=== PATIENT | female | born 2000 | race Two or more races ===

== ENCOUNTER 2024-09-24 14:02 | Outpatient (AMB) | payer MEDICAID, SELFPAY ==
[2024-09-24 14:10] VITALS: BP 114/66; PULSE 93; RESP 20; TEMP 36.8; O2SAT 97; BMI 32.4
--- NOTE | 2024-09-24 14:10 | AMB.OBINITIA ---
Vital Signs 09/24/24 14:10 Height 1.7 m Height Method Stated Weight 93.894 kg Weight Measurement Method Standing Scale BMI 32.4 BP 114/66 Blood Pressure Source Automatic Cuff Blood Pressure Location Right Upper Arm Position Sitting Respiration 20 Pulse 93 Pulse Source Monitor Temp 98.2 F Temp Source Temporal Artery Scan Pulse Oximetry (%) 97 Oxygen Delivery Method Room Air Allergies/Home Meds Allergies & Medications Allergies No Known Allergies Allergy (Verified 09/24/24 14:11) Medication Reconciliation vits no.126-ferrous fum 28 mg iron-folic acid 800 mcg tablet (Classic ) tab PO 09/24/24 [History Confirmed 09/24/24] Intake Visit Data Collection New Patient or Established: New Patient (never been to [facility]) Reason for Visit:: obi Berry Picker Required: Yes Do You Feel Safe at Home: Yes Authorities Contacted: N/A PCP or OBGYN visit in last 3 months: Yes Last menstrual period: 02/22/24 Pain Present Currently: No Smoking Status Smoking Status: Never smoker Questionnaires Covid-19 Vaccine Questionnaire Has patient been vacinated for Covid-19 Have you been vacinated for Covid-19: Yes PHQ-9 PHQ-2 Over the last 2 weeks, how often have you been bothered by any of the following problems? 1. Little interest or pleasure in doing things: not at all 2. Feeling down, depressed, or hopeless: not at all Total score: 0 Depression screen completed yes Social History Living Situation History Marital Status: Lives With: Spouse Housing: Apartment Tobacco History Smoking Status: Never smoker Alcohol History Alcohol Intake: Never Domestic Abuse History Do You Feel Safe at Home: Yes Past Medical History Past Medical History Have you ever been diagnosed with any of the following: History of Present Illness HPI Narrative 24-year-old 2 para 1 for first visit to the [facility] OB [facility]. Patient is a transfer of care from [facility] with records. Last period January 18, 2024. This gave a due date of October 24, 2024. Patient had uncertain dates. Her first ultrasound was July 02, 2024. Patient was 19 weeks 1 day and this change due date to November 25, 2024. Patient then had another ultrasound August 13, 2024. Patient was 25 weeks 1 and this confirmed dates. Showed normal anatomy. Patient is O+, antibody screen negative, RPR nonreactive, rubella immune, hepatitis B negative, hep C negative, HIV negative, her GC and Chlamydia were negative. Negative urinalysis. A1c was 5.1. Her 1 hour was 142. But 3-hour Glucola was normal. Patient denies social habits. Denies history of chronic illnesses. She reports good movement. Denies contractions. Tdap was last given at her visit. NIPT AFP and carrier screens were all negative OB Initial Visit OB Flowsheet OB Flowsheet Initial Weight: Not Recorded Date <del>?</del> EGA Weight Edema CTX Effacement BP Fundal ht Pres Dilation Effacement Station Visit Note Alb Glu FHR Mov 09/24/24 <del>?</del> 31w 1d 93.894 kg absent absent 114/66 31 unknown 24-year-old 2 para 1, previous x 1 for 4 first OB check to [facility] clinic. Patient is a transfer of care from [facility] with her records. She reports good movement. Denies any complaints of labor. No leaking. She had Tdap at her last visit. She had a abnormal 1 hour that was 142. 3-hour Glucola was normal. Her A1c was 5.1. Patient is been taking her vitamins and iron. Reports good movement. Patient has follow-up maternal- ultrasound October 29. Menstrual History Menstrual reliability: definite Flow: normal Menstrual regularity: regular Monthly: Yes Age at menarche: 14 On control pills at conception: Yes Date of positive home test: 03/23/24 OB History : 2 Para: 1 # of Living Children: 1 Delivery History 1st : sex: female Delivery type: Delivery complications: none History of depression before or after : No Infection History & Risk Evaluation History of STDs: none HIV risk evaluation: low risk Hepatitis B risk evaluation: low risk Patient or partner has history of Genital Herpes: No Varicella/chicken pox status: immunized Genetic Screening & History Genetic Screening/Teratology Counseling - Includes patient, baby's father, or anyone in either family with: 1. Patient's age 35 years or older as of estimated date of delivery: No 2. Thalassemia (Luxembourgish, Mohawk, Mediterranean, or Background); MCV less than 80: No 3. Neural Tube Defect (Meningomyelocele, Spina Bifida, or Anencephaly): No 4. Congenital Heart Defect: No 5. Down Syndrome: No 6. Raulito-Sachs (Ashkenazi Restorationism, Cajun, Greek [place]): No 7. Mary Disease (Ashkenazi Restorationism): No 8. Familial Dysautonomia (Ashkenazi Restorationism): No 9. Sickle Cell Disease or Trait (): No 10. Hemophilia or other blood disorders: No 11. Muscular Dystrophy: No 12. Cystic Fibrosis: No 13. Loveland's Chorea: No 14. Mental Retardation/Autism: No 15. Other inherited genetic or chromosomal disorder: No 16. Maternal Metabolic Disorder (EG,TYPE 1 Diabetes, PKU): No 17. Patient or baby's father had a child with defects not listed above: No 18. Recurrent loss or a stillbirth: No 19. Medications (including supplements, vitamins, herbs or otc drugs)/illicit/recreational drugs/alcohol since last menstrual period: No 20. Any other: No Infection History 1. Live with someone with TB or exposed to TB: No 2. Rash or viral illness since last menstrual period: No 3. Hepatitis B,C: No Other (see comments) Source: [employer] [place] [employer] Review of Systems Review of Systems Systems Reviewed: All systems reviewed, normal except as documented Exam General Limitations: no limitations General Appearance: alert, in no apparent distress, comfortable, cooperative, healthy appearing, well developed and well groomed Neck Neck exam: Present normal inspection, full ROM and trachea midline Chest Chest inspection: Present normal inspection and symmetric chest wall rise Resp Respiratory exam: Present normal lung sounds bilaterally Card Cardiovascular exam: Present regular rate, normal rhythm and normal heart sounds Abdominal Abdominal exam: Present soft and normal bowel sounds Psych Psychiatric exam: Present normal affect and normal mood Assessment & Plan Diagnosis / Problem List (1) Encounter for supervision of high risk in third trimester, antepartum: Status: Acute (2) Previous section: Status: Acute Plan Referred to OB for medical management due to previous . Discussed labor precautions. Discussed kick count. Continue vitamins and iron.. Keep maternal- medicine appointment October 29. Return in 2 weeks OB check Additional Plan Follow Up: 2 Weeks (obc) Office Procedures OB Clinic LOC & Office Proc's Nursing/Assessment Patient Status: Initial/New Patient OB Clinic Nursing Assessment: Medication Reconciliation, Update PMH in EMR and Vital Signs OB Clinic Coordination of Care: Complex Care and Chronic Disease 1-5, Education Complex Pt/Fam and Staff clarify orders Special Needs: Language special needs New Patient Charge New Patient Point Assignment: [id number] New Patient Point Charge: BRICK PAVER Level 3 ([id number])
== END 2024-09-24 14:29 | disposition home or self-care (01) ==
LOC: HODSOBC 14:02
PROVIDERS: Supervising Provider Advanced Practice Midwife; Visit Provider Advanced Practice Midwife
DX: O09.293 Supervision of pregnancy with other poor reproductive or obstetric history, third trimester (principal); O34.219 Maternal care for unspecified type scar from previous cesarean delivery; Z3A.31 31 weeks gestation of pregnancy
CPT/HCPCS: 99203; G0463

== ENCOUNTER 2024-10-13 09:21 | Outpatient (AMB) | payer MEDICAID, SELFPAY ==
[2024-10-13 09:47] VITALS: BP 119/69; PULSE 92; RESP 18; TEMP 36.4; O2SAT 98; BMI 32.5
--- NOTE | 2024-10-13 09:47 | OBCLNT_ITS ---
Vital Signs 10/13/24 09:47 Height 1.7 m Height Method Stated Weight 94.12 kg Weight Measurement Method Standing Scale BMI 32.5 BP 119/69 Blood Pressure Source Automatic Cuff Blood Pressure Location Left Upper Arm Position Sitting Respiration 18 Pulse 92 Pulse Source Monitor Temp 97.6 F Temp Source Oral Pulse Oximetry (%) 98 Oxygen Delivery Method Room Air Allergies/Home Meds Allergies & Medications Allergies No Known Allergies Allergy (Verified 10/13/24 09:48) Medication Reconciliation vits no.126-ferrous fum 28 mg iron-folic acid 800 mcg tablet (Classic ) tab PO 09/24/24 [History Confirmed 10/13/24] Intake Visit Data Collection New Patient or Established: Established Patient (seen at [facility] within 3 years) Reason for Visit:: CARE Seen by Clinical Staff ONLY (RN/MA): No Insulation Supervisor Required: Yes Insulation Supervisor's name/title: NAUN GONZALEZ Do You Feel Safe at Home: Yes Authorities Contacted: N/A PCP or OBGYN visit in last 3 months: Yes Hx Now: Yes Are you currently on any form of Control: No Pain Present Currently: No Pain Scale Used: Lind-Dickens/Numerical Pain scale:: 0 Smoking Status Smoking Status: Never smoker Questionnaires Covid-19 Vaccine Questionnaire Has patient been vacinated for Covid-19 Have you been vacinated for Covid-19: Yes PHQ-9 PHQ-2 Over the last 2 weeks, how often have you been bothered by any of the following problems? 1. Little interest or pleasure in doing things: not at all 2. Feeling down, depressed, or hopeless: not at all Total score: 0 PHQ-9 3. Trouble falling or staying asleep, or sleeping too much: Not at all 4. Feeling tired or having little energy: Not at all 5. Poor appetite or overeating: Not at all 6. Feeling bad about yourself - or that you are a failure or have let yourself or your family down: Not at all 7. Trouble concentrating on things, such as reading the newspaper or watching television: Not at all 8. Moving or speaking so slowly that other people could have noticed? - Or the opposite - being so fidgety or restless that you have been moving around a lot more than usual: not at all 9. Thoughts that you would be better off or of hurting yourself in some way: Not at all Total score: 0 Source: Developed by Drs. Nilson Lin, Jeanette David, Albert Haynes and colleagues, with an educational camilla from [employer]. Depression screen completed yes Social History Living Situation History Lives With: Spouse Housing: Apartment Tobacco History Smoking Status: Never smoker Alcohol History Alcohol Intake: Never Domestic Abuse History Do You Feel Safe at Home: Yes History of Present Illness HPI Narrative - Ban Jorge is a 24-year-old ( 2, para 1) with a history of one previous section, presenting for her first visit. - Estimated due date: 11/25/2024, based on 2nd trimester ultrasound - Patient reports: - Baby is active - No contractions - Experienced some pressure, likely from spine, which resolved - Transferred care from [facility] - Recent healthcare interactions: - Abnormal 1-hour glucose test, followed by a normal 3-hour test - A1c of 5.1 - Upcoming appointments: - Maternal- ultrasound on 10/21/2024 - Specialist ultrasound on 10/29/2024 No contractions/ LOF/VB, reports good FM No NAVAS/VC/RUQ/Epig pain Care OB Visit Log OB Flowsheet Initial Weight: Not Recorded Date -?-?-?-?-?-?-?-?-?-?-?-?- EGA Weight BP Alb Glu CTX Pres Fundal ht FHR Mov Dilation Station Effacement Hx Notes Visit Note 09/24/24 -?-?-?-?-?--?-?-?-?-?-?-?- 31w 1d 93.894 kg 114/66 absent unknown 31 24-year-old 2 para 1, previous x 1 for 4 first OB check to [facility] OB clinic. Patient is a transfer of care from [facility] with her records. She reports good movement. Denies any complaints of labor. No leaking. She had Tdap at her last visit. She had a abnormal 1 hour that was 142. 3-hour Glucola was normal. Her A1c was 5.1. Patient is been taking her vitamins and iron. Reports good movement. Patient has follow-up maternal- ultrasound October 29. 10/13/24 -?-?-?-?-?-?-?-?-?-?-?-?- 33w 6d 94.12 kg 119/69 Patient is a 24-year-old at 28 weeks gestation (PANCHO 11/25/2024) presenting for her first visit after transferring care from [facility]. She has a history of one prior section. Reports active movement and denies contractions. Previous complaint of spinal pressure has resolved. An abnormal 1-hour glucose test was followed by a normal 3-hour GTT; A1c is 5.1. No current complications or concerns noted. Review of systems negative except for movement. Plan: Schedule maternal- medicine ultraso und on 10/21/2024 Schedule specialist ultrasound on 025 Plan for repeat after speciali st ultrasound evaluation Schedule follow-up visit after 10/29 to [facility] ultrasound findings Provide and review sterilization consent form; obtain signature Wound Care Nurse on the irreversible nature of pe rmanent sterilization Review visitor policy: 1 person allowed during surgery, 2 visitors allowed post-op PANCHO Calculator Estimated Delivery Date Method Current WG Current Estimate 11/25/24 Ultrasound #2 35w 0d Other Estimates 10/24/24 LMP (Uncertain) 39w 4d 11/25/24 Ultrasound #1 35w 0d Exam General General Appearance: alert, in no apparent distress and healthy appearing Head Head exam: atraumatic Neck Neck exam: Present normal inspection and trachea midline Chest Chest inspection: Present normal inspection and symmetric chest wall rise External exam: Present normal external exam; Absent tenderness Neuro Neurological exam: Present oriented X3 Psych Psychiatric exam: Present normal affect and normal mood Office Procedures OB Clinic LOC & Office Proc's Nursing/Assessment Patient Status: Established Patient OB Clinic Nursing Assessment: Medication Reconciliation, Update PMH in EMR and Vital Signs OB Clinic Coordination of Care: Complex Care and Chronic Disease 1-5, Consent,records obtained, informed consent, Education Simp Pt/Fam, Lab and Imaging orders, Results/Orders obtained and Staff clarify orders Special Needs: Heart tones Miscellaneous Interventions: Blood/Urine Collection Established Patient Charge Established Patient Point Assignment: 165 Established Patient Point Charge: EP Level 5 (160-above) Assessment & Plan Diagnosis / Problem List (1) Previous section: Status: Acute (2) Encounter for supervision of high risk in third trimester, antepartum: Status: Acute Plan Problem List - , second trimester - History of section - History of abnormal glucose tolerance test Assessment - at 1st visit - Previous section - Abnormal 1-hour glucose test, normal 3-hour test - A1c of 5.1 - PANCHO 11/25/2024 based on 2nd trimester ultrasound - movement present - No contractions reported Plan - Follow-up maternal- ultrasound on October 21, 2024 - Ultrasound with specialist on October 29, 2024 - Book date after specialist ultrasound - Provide and obtain signature for tubal ligation consent form - Return visit after October 29, 2024 with ultrasound report Educated the patient on labor signs, including regular contractions, lower back pain, and changes in vaginal discharge. Advised avoiding heavy lifting and getting adequate rest. Instructed to contact the office immediately if any signs occur. Discussed the importance of a balanced diet rich in folic a noah, iron, and calcium, and provided a list of recommended and to-avoid foods. Emphasized avoiding high-sugar foods to reduce gestational diabetes risk. Encouraged hydration and frequent, small meals for energy..
[2024-10-13 14:57] LABS: Bilirubin,Urine Clinitek Negative (Negative); Blood,Urine Clinitek Trace-intact (Negative); Glucose, Urine Clinitek Negative (Negative); Ketones,Urine Clinitek Negative (Negative); Leukocyte Esterase,Urine Clin 3+ (Negative); Nitrite,Urine Clinitek Negative (Negative); Protein,Urine Clinitek Negative (Neg - Trace); Urobilinogen,Urine Clinitek 0.2 mg/dL (0.0-1.0)
== END 2024-10-13 10:36 | disposition home or self-care (01) ==
LOC: HODSOBC 09:21
PROVIDERS: Advanced Practice Midwife; Supervising Provider Obstetrics & Gynecology; Visit Provider Obstetrics & Gynecology
DX: O09.293 Supervision of pregnancy with other poor reproductive or obstetric history, third trimester (principal); Z3A.33 33 weeks gestation of pregnancy; O34.219 Maternal care for unspecified type scar from previous cesarean delivery
CPT/HCPCS: 81001; 99215; G0463

== ENCOUNTER 2024-10-30 10:11 | Outpatient (AMB) | payer MEDICAID, SELFPAY ==
[2024-10-30 10:17] VITALS: BP 125/68; PULSE 96; RESP 17; TEMP 36.4; O2SAT 95; BMI 32.8
--- NOTE | 2024-10-30 10:17 | OBCLNT_ITS ---
Vital Signs 10/30/24 10:17 Height 1.7 m Height Method Stated Weight 94.914 kg Weight Measurement Method Standing Scale BMI 32.8 BP 125/68 Blood Pressure Source Automatic Cuff Blood Pressure Location Right Upper Arm Position Sitting Respiration 17 Pulse 96 Pulse Source Monitor Temp 97.6 F Temp Source Temporal Artery Scan Pulse Oximetry (%) 95 Oxygen Delivery Method Room Air Allergies/Home Meds Allergies & Medications Allergies No Known Allergies Allergy (Verified 10/30/24 10:19) Medication Reconciliation vits no.126-ferrous fum 28 mg iron-folic acid 800 mcg tablet (Classic ) tab PO 09/24/24 [History Confirmed 10/30/24] Intake Visit Data Collection New Patient or Established: Established Patient (seen at [facility] within 3 years) Reason for Visit:: OBC Seen by Clinical Staff ONLY (RN/MA): No Geology Technician Required: Yes Do You Feel Safe at Home: Yes Authorities Contacted: N/A PCP or OBGYN visit in last 3 months: Yes Date of Last PCP or OBGYN visit: 10/13/24 Hx Now: Yes Are you currently on any form of Control: No Pain Present Currently: No Pain Scale Used: Lind-Dickens/Numerical Pain scale:: 0 Smoking Status Smoking Status: Never smoker Questionnaires Covid-19 Vaccine Questionnaire Has patient been vacinated for Covid-19 Have you been vacinated for Covid-19: Yes PHQ-9 PHQ-2 Over the last 2 weeks, how often have you been bothered by any of the following problems? 1. Little interest or pleasure in doing things: not at all 2. Feeling down, depressed, or hopeless: not at all Total score: 0 PHQ-9 3. Trouble falling or staying asleep, or sleeping too much: Not at all 4. Feeling tired or having little energy: Not at all 5. Poor appetite or overeating: Not at all 6. Feeling bad about yourself - or that you are a failure or have let yourself or your family down: Not at all 7. Trouble concentrating on things, such as reading the newspaper or watching television: Not at all 8. Moving or speaking so slowly that other people could have noticed? - Or the opposite - being so fidgety or restless that you have been moving around a lot more than usual: not at all 9. Thoughts that you would be better off or of hurting yourself in some way: Not at all Total score: 0 If you checked off any problems, how difficult have these problems made it for you to do your work, take care of things at home, or get along with other people?: not difficult at all Source: Developed by Drs. Nilson Lin, Jeanette David, Albert Haynes and colleagues, with an educational camilla from [email or web address]. Depression screen completed yes Social History Living Situation History Lives With: Spouse Housing: Apartment Tobacco History Smoking Status: Never smoker Alcohol History Alcohol Intake: Never Domestic Abuse History Do You Feel Safe at Home: Yes History of Present Illness HPI Narrative - Ban Jorge is a 1, para 1 patient presenting for a routine visit at 36 weeks and 2 days gestation. - Patient has a history of previous section. - She has been compliant with all care appointments to date. - Due for group B streptococcus screening today. - Patient had a Maternal- Medicine (MFM) ultrasound on 10/29/2024. - No reported symptoms or concerns mentioned during this visit. No contractions/ LOF/VB, reports good FM No NAVAS/VC/RUQ/Epig pain Care OB Visit Log OB Flowsheet Initial Weight: Not Recorded Date -?-?-?-?-?-?-?-?-?-?-?-?- EGA Weight BP Alb Glu CTX Pres Fundal ht FHR Mov Dilation Station Effacement Hx Notes Visit Note 09/24/24 -?--?-?-?-?-?-?-?-?-?-?-?- 31w 1d 93.894 kg 114/66 absent unknown 31 24-year-old 2 para 1, previous x 1 for 4 first OB check to [facility] OB clinic. Patient is a transfer of care from [facility] with her records. She reports good movement. Denies any complaints of labor. No leaking. She had Tdap at her last visit. She had a abnormal 1 hour that was 142. 3-hour Glucola was normal. Her A1c was 5.1. Patient is been taking her vitamins and iron. Reports good movement. Patient has follow-up maternal- ultrasound October 29. 10/13/24 -?-?-?-?-?-?-?-?-?-?-?-?- 33w 6d 94.12 kg 119/69 Patient is a 24-year-old at 28 weeks gestation (PANCHO 11/25/2024) presenting for her first visit after transferring care from [facility]. She has a history of one prior section. Reports active movement and denies contractions. Previous complaint of spinal pressure has resolved. An abnormal 1-hour glucose test was followed by a normal 3-hour GTT; A1c is 5.1. No current complications or concerns noted. Review of systems negative except for movement. Plan: Schedule maternal- medicine ultraso und on 10/21/2024 Schedule specialist ultrasound on 025 Plan for repeat after speciali st ultrasound evaluation Schedule follow-up visit after 10/29 to [facility] ultrasound findings Provide and review sterilization consent form; obtain signature Truck Safety Inspector on the irreversible nature of pe rmanent sterilization Review visitor policy: 1 person allowed during surgery, 2 visitors allowed post-op 10/30/24 -?-?-?-?-?-?-?-?-?-?-?-?- 36w 2d 94.914 kg 125/68 at 36 weeks and 2 days gestation with a history of prior section presents for routine care. Patient is compliant with all care. Recent [facility] ultrasound on 10/29/2024 showed a cephalic fetus with posterior placenta, CHRISTINA of 12.9, FHR 167 bpm, and an estimated weight of 3,362 grams. Noted class I obesity (BMI 31.5), large for gestational age fetus, and size-date discrepancy with revised EDC to 11/25/2024. No current complaints. Reports good movement and denies contractions, LOF, or VB. Plan: Problem List: 36w2d, previous section, class I obesity, large for gestational age fetus, size-date discrepancy. Proceed with scheduling of repeat maribel an delivery. Group B Streptococcus screening performed today. Patient to return for follow-up in one week. Reviewed labor and preeclampsia warning signs, emphasized movement monitoring, and discussed nutritional counseling for continued healthy weight maintenance through term. PANCHO Calculator Estimated Delivery Date Method Current WG Current Estimate 11/25/24 Ultrasound #2 36w 2d Other Estimates 10/24/24 LMP (Uncertain) 40w 6d 11/25/24 Ultrasound #1 36w 2d Exam General General Appearance: alert, in no apparent distress and healthy appearing Head Head exam: atraumatic Neck Neck exam: Present normal inspection and trachea midline Chest Chest inspection: Present normal inspection and symmetric chest wall rise External exam: Present normal external exam; Absent tenderness Neuro Neurological exam: Present oriented X3 Psych Psychiatric exam: Present normal affect and normal mood Office Procedures OB Clinic LOC & Office Proc's Nursing/Assessment Patient Status: Established Patient OB Clinic Nursing Assessment: Medication Reconciliation, Update PMH in EMR and Vital Signs OB Clinic Coordination of Care: Complex Care and Chronic Disease 1-5, Consent,records obtained, informed consent, Education Simp Pt/Fam and Staff clarify orders Special Needs: Heart tones Established Patient Charge Established Patient Point Assignment: 115 Established Patient Point Charge: EP Level 3 (80-115) Assessment & Plan Diagnosis / Problem List (1) Previous section: Status: Acute (2) Encounter for supervision of high risk in third trimester, antepartum: Status: Acute Plan Problem List - , 36 weeks and 2 days gestation - Previous section - Class I obesity - Large for gestational age fetus - Size-date discrepancy Assessment - 1, para 1 at 36 weeks and 2 days gestation - History of previous section - [facility] ultrasound on 10/29/2024 showed: - Single intrauterine gestation - heart rate 167 bpm - Cephalic presentation - Posterior placenta - CHRISTINA 12.9 - Estimated weight 3,362 grams - Size-date discrepancy with revised EDC to 11/25/2024 - Class I obesity (BMI 31.5) - Large for gestational age (LGA) fetus Plan - Schedule date - Perform Group B Streptococcus screening - Follow up appointment in one week Educated the patient on labor signs, including regular contractions, lower back pain, and changes in vaginal discharge. Advised avoiding heavy lifting and getting adequate rest. Instructed to contact the office immediately if any signs occur. Discussed the importance of a balanced diet rich in folic acid, iron, and calcium, and provided a list of recommended and to-avoid foods. Emphasized avoiding high-sugar foods to reduce gestational diabetes risk. Encouraged hydration and frequent, small meals for energy..
== END 2024-10-30 10:45 | disposition home or self-care (01) ==
LOC: HODSOBC 10:11
PROVIDERS: Supervising Provider Obstetrics & Gynecology; Visit Provider Obstetrics & Gynecology
DX: O09.293 Supervision of pregnancy with other poor reproductive or obstetric history, third trimester (principal); O09.893 Supervision of other high risk pregnancies, third trimester; Z3A.36 36 weeks gestation of pregnancy; O34.219 Maternal care for unspecified type scar from previous cesarean delivery; O99.213 Obesity complicating pregnancy, third trimester; E66.811 Obesity, class 1; O36.63X0 Maternal care for excessive fetal growth, third trimester, not applicable or unspecified; O26.843 Uterine size-date discrepancy, third trimester; Z36.85 Encounter for antenatal screening for Streptococcus B
CPT/HCPCS: 99213; G0463

== ENCOUNTER 2024-11-03 22:45 | Observation (INO) | payer MEDICAID, SELFPAY ==
[2024-11-03 23:01] VITALS: BP 116/65; PULSE 96; RESP 17; RESP 98; TEMP 37
[2024-11-03 23:06] VITALS: BMI 34.7
== END 2024-11-03 23:42 | disposition home or self-care (01) ==
PROVIDERS: Admitting Provider Obstetrics & Gynecology; Visit Provider Obstetrics & Gynecology
DX: O26.853 Spotting complicating pregnancy, third trimester (principal); Z3A.37 37 weeks gestation of pregnancy
CPT/HCPCS: 59025; 59899; G0378

== ENCOUNTER 2024-11-06 13:04 | Outpatient (AMB) | payer MEDICAID, SELFPAY ==
--- NOTE | 2024-11-06 13:19 | OBCLNT_ITS ---
Vital Signs 11/06/24 13:20 Height 1.65 m Height Method Stated Weight 94.347 kg Weight Measurement Method Standing Scale BMI 34.6 BP 117/78 Blood Pressure Source Automatic Cuff Blood Pressure Location Right Upper Arm Position Sitting Respiration 18 Pulse 96 Pulse Source Monitor Temp 96.4 F L Temp Source Oral Pulse Oximetry (%) 98 Oxygen Delivery Method Room Air Allergies/Home Meds Allergies & Medications Allergies No Known Allergies Allergy (Verified 11/13/24 15:24) Medication Reconciliation vits no.126-ferrous fum 28 mg iron-folic acid 800 mcg tablet (Classic ) 1 tab PO DAILY 09/24/24 [History Confirmed 11/13/24] Intake Visit Data Collection New Patient or Established: Established Patient (seen at [facility] within 3 years) Reason for Visit:: CARE Seen by Clinical Staff ONLY (RN/MA): No Software Development Engineer Required: No Do You Feel Safe at Home: Yes Authorities Contacted: N/A PCP or OBGYN visit in last 3 months: Yes Hx Now: Yes Are you currently on any form of Control: No Pain Present Currently: Yes Pain Scale Used: Lind-Dickens/Numerical Pain scale:: 0 Smoking Status Smoking Status: Never smoker Questionnaires Covid-19 Vaccine Questionnaire Has patient been vacinated for Covid-19 Have you been vacinated for Covid-19: Yes PHQ-9 PHQ-2 Over the last 2 weeks, how often have you been bothered by any of the following problems? 1. Little interest or pleasure in doing things: not at all 2. Feeling down, depressed, or hopeless: not at all Total score: 0 PHQ-9 3. Trouble falling or staying asleep, or sleeping too much: Not at all 4. Feeling tired or having little energy: Not at all 5. Poor appetite or overeating: Not at all 6. Feeling bad about yourself - or that you are a failure or have let yourself or your family down: Not at all 7. Trouble concentrating on things, such as reading the newspaper or watching television: Not at all 8. Moving or speaking so slowly that other people could have noticed? - Or the opposite - being so fidgety or restless that you have been moving around a lot more than usual: not at all 9. Thoughts that you would be better off or of hurting yourself in some w ay: Not at all Total score: 0 Source: Developed by Drs. Nilson Lin, Jeanette David, Albert Haynes and colleagues, with an educational camilla from [employer]. Depression screen completed yes Social History Living Situation History Lives With: Spouse Housing: Apartment Tobacco History Smoking Status: Never smoker Alcohol History Alcohol Intake: Never Domestic Abuse History Do You Feel Safe at Home: Yes History of Present Illness HPI Narrative Ban Jorge, , presents for routine visit at 36 weeks and 2 days gestation. Patient has a history of prior delivery. Patient reports pain but no contractions. No mention of leakage of fluid, vaginal bleeding or spotting, or movements. Denies NAVAS, VC, and epigastric pain. - Ban Jroge is a 36-week and 2-day woman () presenting for a visit. - Patient has a history of: - One previous - Class one obesity - Large for gestational age (LGA) fetus with size-date discrepancy - Patient reports experiencing pain, which is attributed to the baby's size and pressure. - No reported contractions. - Patient denies any bleeding. heart tones: 155 bpm. Laboratory, Imaging, and Diagnostic Test Results - Date: 10/29/2024 - Ultrasound: - CHRISTINA: 12.9 - Estimated weight: 3362 grams (92nd percentile for 36 weeks and 1 day) - Placenta: Posterior, no praevia - Date: 11/06/2024 - heart rate: 155 bpm (normal) Care OB Visit Log OB Flowsheet Initial Weight: Not Recorded Date -?-?-?-?-?-?-?-?-?-?-?-?- EGA Weight BP Alb Glu CTX Pres Fundal ht FHR Mov Dilation Station Effacement Hx Notes Visit Note 09/24/24 -?-?-?-?-?-?-?-?-?-?-?-?- 31w 1d 93.894 kg 114/66 absent unknown 31 24-year-old 2 para 1, previous x 1 for 4 first OB check to [facility] OB clinic. Patient is a transfer of care from [facility] with her records. She reports good movement. Denies any complaints of labor. No leaking. She had Tdap at her last visit. She had a abnormal 1 hour that was 142. 3-hour Glucola was normal. Her A1c was 5.1. Patient is been taking her vitamins and iron. Reports good movement. Patient has follow-up maternal- ultrasound October 29. 10/13/24 -?-?-?-?-?-?-?-?-?-?-?-?- 33w 6d 94.12 kg 119/69 Patient is a 24-year-old at 28 weeks gestation (PANCHO 11/25/2024) presenting for her first visit after transferring care from [facility]. She has a history of one prior section. Reports active movement and denies contractions. Previous complaint of spinal pressure has resolved. An abnormal 1-hour glucose test was followed by a normal 3-hour GTT; A1c is 5.1. No current complications or concerns noted. Review of systems negative except for movement. Plan: Schedule maternal- medicine ultraso und on 10/21/2024 Schedule specialist ultrasound on 025 Plan for repeat after speciali st ultrasound evaluation Schedule follow-up visit after 10/29 to [facility] ultrasound findings Provide and review sterilization consent form; obtain signature Shirt Folder on the irreversible nature of pe rmanent sterilization Review visitor policy: 1 person allowed during surgery, 2 visitors allowed post-op 10/30/24 -?-?-?-?-?-?-?-?-?-?-?-?- 36w 2d 94.914 kg 125/68 at 36 weeks and 2 days gestation with a history of prior section presents for routine care. Patient is compliant with all care. Recent [facility] ultrasound on 10/29/2024 showed a cephalic fetus with posterior placenta, CHRISTINA of 12.9, FHR 167 bpm, and an gianni mated weight of 3,362 grams. Noted class I obesity (BMI 31.5), large for gestational age fetus, and size-date discrepancy with revised EDC to 11/25/2024. No current complaints. Reports good movement and denies contractions, LOF, or VB. Plan: Problem List: 36w2d, previous section, class I obesity, large for gestational age fetus, size-date discrepancy. Proceed with scheduling of repeat maribel an delivery. Group B Streptococcus screening performed today. Patient to return for follow-up in one week. Reviewed labor and preeclampsia warning signs, emphasized movement monitoring, and discussed nutritional counseling for continued healthy weight maintenance through term. 11/06/24 -?-?-?-?-?-?-?-?-?-?-?-?- 37w 2d 94.347 kg 117/78 38yo @36w2d, prior C/S, class 1 obesity, LGA fetus (3362g, 92nd%), size-date discrepancy, pain likely size, FHT 155 bpm. Plan: C/S 11/18, f/u next week, GBS swab, C/S consent, provide US results. 11/13/24 -?-?-?-?-?-?-?-?-?-?-?-?- 38w 2d 95.028 kg 122/78 @ 38w2d, h/o , class 1 obesity, LGA fetus (92nd %ile at 36w), presents for pre-op eval. No CTX/LOF/VB, reports good FM. Passed mucus plug, no excessive bleeding. Transferred care from another facility. FHT 138 bpm. Plan: Proceed with scheduled repeat C-se ction and tubal ligation on 11/18/2024. Patient to check in by 10:00 AM, NPO after midnight. Counselled to monitor for CTX, decreased FM, or bleeding. Await GBS result from outside records. Routine precautions reviewed. No further office visits planned. PANCHO Calculator Estimated Delivery Date Method Current WG Current Estimate 11/25/24 Ultrasound #2 39w 0d Other Estimates 10/24/24 LMP (Uncertain) 43w 4d 11/25/24 Ultrasound #1 39w 0d Exam General General Appearance: alert, in no apparent distress and healthy appearing Head Head exam: atraumatic Neck Neck exam: Present normal inspection and trachea midline Chest Chest inspection: Present normal inspection and symmetric chest wall rise External exam: Present normal external exam; Absent tenderness Neuro Neurological exam: Present oriented X3 Psych Psychiatric exam: Present normal affect and normal mood Office Procedures OB Clinic LOC & Office Proc's Nursing/Assessment Patient Status: Established Patient OB Clinic Nursing Assessment: Medication Reconciliation, Update PMH in EMR and Vital Signs OB Clinic Coordination of Care: Complex Care and Chronic Disease 1-5, Consent,records obtained, informed consent, Education Simp Pt/Fam, Lab and Imaging orders, Results/Orders obtained and Staff clarify orders Special Needs: Heart tones Miscellaneous Interventions: Pelvic Culture Established Patient Charge Established Patient Point Assignment: 145 Established Patient Point Charge: EP Level 4 (120-155) Assessment & Plan Diagnosis / Problem List (1) Previous section: Status: Acute (2) Encounter for supervision of high risk in third trimester, antepartum: Status: Acute Plan Problem List - , 36 weeks and 2 days - History of section - Class 1 obesity - Large for gestational age fetus - Size-date discrepancy Assessment at 36 weeks and 2 days gestation presenting for routine visit. History of one prior . Class 1 obesity noted. LGA fetus with size-date discrepancy confirmed by recent ultrasound (10/29/2024) showing estimated weight of 3362 grams (92nd percentile) at 36 weeks 1 day. CHRISTINA 12.9, posterior placenta, no placenta previa. Group B strep testing completed. Patient reports pain, likely due to size. Normal heart rate of 155 bpm auscultated during visit. Plan - Scheduled for November 18 - Follow-up visit next week (final visit before delivery) - Perform Group B Streptococcus (GBS) culture - Provide consent form for - Provide copy of ultrasound results to patient 1. Progress Reviewed gestational age, growth, and heart rate. Planned frequent visits (every 2 weeks until 36 weeks, then weekly). 2. Instructed patient to monitor movements and report decreases immediately. 3. Testing Counseled on routine third-trimester labs per guidelines. Discussed potential need for ultrasound or monitoring based on risk factors. 4. Preeclampsia Precaution Educated on preeclampsia signs: severe headache, vision changes, right upper monae drant pain, sudden swelling. Advised urgent reporting of symptoms and discussed blood pressure monitoring if high risk. 5. Labor Precautions Reviewed labor signs: regular contractions, pelvic pressure, back pain, bleeding, or fluid leakage. Instructed to seek immediate care for these symptoms. 6. Lifestyle and Delivery Preparation Reinforced vitamins, nutrition, and safe activity. Discussed plan, pain management, and . Advised on labor preparation (e.g., hospital bag) and expectations. 7. Psychosocial Support Assessed emotional well-being and offered resources for mental health or parenting support.
[2024-11-06 13:20] VITALS: BP 117/78; PULSE 96; RESP 18; TEMP 35.8; O2SAT 98; BMI 34.6
== END 2024-11-06 13:50 | disposition home or self-care (01) ==
LOC: HODSOBC 13:04
PROVIDERS: Supervising Provider Obstetrics & Gynecology; Visit Provider Obstetrics & Gynecology
DX: O09.293 Supervision of pregnancy with other poor reproductive or obstetric history, third trimester (principal); O34.219 Maternal care for unspecified type scar from previous cesarean delivery; O09.893 Supervision of other high risk pregnancies, third trimester; O36.63X0 Maternal care for excessive fetal growth, third trimester, not applicable or unspecified; O26.843 Uterine size-date discrepancy, third trimester; Z3A.37 37 weeks gestation of pregnancy; O99.213 Obesity complicating pregnancy, third trimester; E66.811 Obesity, class 1; Z36.85 Encounter for antenatal screening for Streptococcus B
CPT/HCPCS: 99214; G0463

== ENCOUNTER 2024-11-13 14:48 | Outpatient (AMB) | payer MEDICAID, SELFPAY ==
[2024-11-13 15:09] VITALS: BP 122/78; PULSE 99; RESP 18; TEMP 36.2; O2SAT 98; BMI 34.9
--- NOTE | 2024-11-13 15:09 | OBCLNT_ITS ---
Vital Signs 11/13/24 15:09 Height 1.65 m Height Method Stated Weight 95.028 kg Weight Measurement Method Standing Scale BMI 34.9 BP 122/78 Blood Pressure Source Automatic Cuff Blood Pressure Location Left Upper Arm Position Sitting Respiration 18 Pulse 99 Pulse Source Monitor Temp 97.2 F Temp Source Oral Pulse Oximetry (%) 98 Oxygen Delivery Method Room Air Allergies/Home Meds Allergies & Medications Allergies No Known Allergies Allergy (Verified 11/13/24 15:24) Medication Reconciliation vits no.126-ferrous fum 28 mg iron-folic acid 800 mcg tablet (Classic ) 1 tab PO DAILY 09/24/24 [History Confirmed 11/13/24] Intake Visit Data Collection New Patient or Established: Established Patient (seen at [facility] within 3 years) Reason for Visit:: OBC Seen by Clinical Staff ONLY (RN/MA): No Ordnance Engineer Required: Yes Ordnance Engineer's name/title: NAUN GONZALEZ MA Do You Feel Safe at Home: Yes Authorities Contacted: N/A PCP or OBGYN visit in last 3 months: Yes Date of Last PCP or OBGYN visit: 11/06/24 Hx Now: Yes Are you currently on any form of Control: No Pain Present Currently: No Pain Scale Used: Lind-Dickens/Numerical Pain scale:: 0 Smoking Status Smoking Status: Never smoker Questionnaires Covid-19 Vaccine Questionnaire Has patient been vacinated for Covid-19 Have you been vacinated for Covid-19: Yes PHQ-9 PHQ-2 Over the last 2 weeks, how often have you been bothered by any of the following problems? 1. Little interest or pleasure in doing things: not at all 2. Feeling down, depressed, or hopeless: not at all Total score: 0 PHQ-9 3. Trouble falling or staying asleep, or sleeping too much: Not at all 4. Feeling tired or having little energy: Not at all 5. Poor appetite or overeating: Not at all 6. Feeling bad about yourself - or that you are a failure or have let yourself or your family down: Not at all 7. Trouble concentrating on things, such as reading the newspaper or watching television: Not at all 8. Moving or speaking so slowly that other people could have noticed? - Or the opposite - being so fidgety or restless that you have been moving around a lot more than usual: not at all 9. Thoughts that you would be better off or of hurting yourself in some way: Not at all Total score: 0 If you checked off any problems, how difficult have these problems made it for you to do your work, take care of things at home, or get along with other people?: not difficult at all Source: Developed by Drs. Nilson Lin, Jeanette David, Albert Haynes and colleagues, with an educational camilla from [employer]. Depression screen completed yes Social History Living Situation History Lives With: Spouse Housing: Apartment Tobacco History Smoking Status: Never smoker Second Hand Smoke Exposure: No Alcohol History Alcohol Intake: Never Domestic Abuse History Do You Feel Safe at Home: Yes History of Present Illness HPI Narrative Ban Jorge, , presents for routine visit at 38 weeks and 2 days gestation. Patient has a history of prior delivery. No contractions, LOF, VB and reports good FM. Denies NAVAS, VC, and epigastric pain. - Ban Jorge is a 24-year-old at 38 weeks and 2 days gestation, presenting for pre-operative evaluation before scheduled repeat . - Scheduled for repeat on 11-18-2024 (next week) - Patient transferred care from another facility - Problem list includes: - History of previous - Class one obesity - LGA (large for gestational age) fetus with uterine size-date discrepancy - Patient reports passing mucus plug, which was noted as normal - Denies excessive bleeding - Reports normal movement - No specific complaints or concerns mentioned Care OB Visit Log OB Flowsheet Initial Weight: Not Recorded Date -?-?-?-?-?-?-?-?-?-?-?-?- EGA Weight BP Alb Glu CTX Pres Fundal ht FHR Mov Dilation Station Effacement Hx Notes Visit Note 09/24/24 -?-?-?-?-?-?-?-?-?-?-?-?- 31w 1d 93.894 kg 114/66 absent unknown 31 24-year-old 2 para 1, previous x 1 for 4 first OB check to [facility] OB clinic. Patient is a transfer of care from [facility] with her records. She reports good movement. Denies any complaints of labor. No leaking. She had Tdap at her last visit. She had a abnormal 1 hour that was 142. 3-hour Glucola was normal. Her A1c was 5.1. Patient is been taking her vitamins and iron. Reports good movement. Patient has follow-up maternal- ultrasound October 29. 10/13/24 -?-?-?-?-?-?-?-?-?-?-?-?- 33w 6d 94.12 kg 119/69 Patient is a 24-year-old at 28 weeks gestation (PANCHO 11/25/2024) presenting for her first visit after transferring care from [facility]. She has a history of one prior section. Reports active movement and denies contractions. Previous complaint of spinal pressure has resolved. An abnormal 1-hour glucose test was followed by a normal 3-hour GTT; A1c is 5.1. No current complications or concerns noted. Review of systems negative except for movement. Plan: Schedule maternal- medicine ultraso und on 10/21/2024 Schedule specialist ultrasound on 025 Plan for repeat after speciali st ultrasound evaluation Schedule follow-up visit after 10/29 to [facility] findings Provide and review sterilization consent form; obtain signature Civil Geotechnical Engineer on the irreversible nature of pe rmanent sterilization Review visitor policy: 1 person allowed during surgery, 2 visitors allowed post-op 10/30/24 -?-?-?-?-?-?-?-?-?-?-?-?- 36w 2d 94.914 kg 125/68 at 36 weeks and 2 days gestation with a history of prior section presents for routine care. Patient is compliant with all care. Recent [facility] ultrasound on 10/29/2024 showed a cephalic fetus with posterior placenta, CHRISTINA of 12.9, FHR 167 bpm, and an estimated weight of 3,362 grams. Noted class I obesity (BMI 31.5), large for gestational age fetus, and size-date discrepancy with revised EDC to 11/25/2024. No current complaints. Reports good movement and denies contractions, LOF, or VB. Plan: Problem List: 36w2d, previous section, class I obesity, large for gestational age fetus, size-date discrepancy. Proceed with scheduling of repeat maribel an delivery. Group B Streptococcus screening performed today. Patient to return for follow-up in one week. Reviewed labor and preeclampsia warning signs, emphasized movement monitoring, and discussed nutritional counseling for continued healthy weight maintenance through term. 11/06/24 -?-?-?-?-?-?-?-?-?-?-?-?- 37w 2d 94.347 kg 117/78 38yo @36w2d, prior C/S, class 1 obesity, LGA fetus (3362g, 92nd%), size-date discrepancy, pain likely size, FHT 155 bpm. Plan: C/S 11/18, f/u next week, GBS swab, C/S consent, provide US results. 11/13/24 -?-?-?-?-?-?-?-?-?-?-?-?- 38w 2d 95.028 kg 122/78 @ 38w2d, h/o , class 1 obesity, LGA fetus (92nd %ile at 36w), presents for pre-op eval. No CTX/LOF/VB, reports good FM. Passed mucus plug, no excessive bleeding. Transferred care from another facility. FHT 138 bpm. Plan: Proceed with scheduled repeat C-se ction and tubal ligation on 11/18/2024. Patient to check in by 10:00 AM, NPO after midnight. Counselled to monitor for CTX, decreased FM, or bleeding. Await GBS result from outside records. Routine precautions reviewed. No further office visits planned. PANCHO Calculator Estimated Delivery Date Method Current WG Current Estimate 11/25/24 Ultrasound #2 39w 0d Other Estimates 10/24/24 LMP (Uncertain) 43w 4d 11/25/24 Ultrasound #1 39w 0d Exam General General Appearance: alert, in no apparent distress and healthy appearing Head Head exam: atraumatic Neck Neck exam: Present normal inspection and trachea midline Chest Chest inspection: Present normal inspection and symmetric chest wall rise External exam: Present normal external exam; Absent tenderness Neuro Neurological exam: Present oriented X3 Psych Psychiatric exam: Present normal affect and normal mood Office Procedures OB Clinic LOC & Office Proc's Nursing/Assessment Patient Status: Established Patient OB Clinic Nursing Assessment: Medication Reconciliation, Update PMH in EMR and Vital Signs OB Clinic Coordination of Care: Education Complex Pt/Fam, Consent,records obtained, informed consent, Lab and Imaging orders and Staff clarify orders Special Needs: Heart tones and Language special needs Established Patient Charge Established Patient Point Assignment: 110 Established Patient Point Charge: EP Level 3 (80-115) Assessment & Plan Diagnosis / Problem List (1) Previous section: Status: Acute (2) Encounter for supervision of high risk in third trimester, antepartum: Status: Acute Plan Problem List - Previous section - Class 1 obesity - Large for gestational age fetus - Uterine size-date discrepancy Assessment 38-week and 2-day patient scheduled for repeat on 11/18 with planned tubal ligation. History of previous . Class one obesity noted. Large for gestational age (LGA) fetus with uterine size-date discrepancy. Last ultrasound at 36 weeks showed fetus at 92nd percentile, amniotic fluid index (CHRISTINA) of 12.9, and posterior placenta with no previa. Group B strep status from previous documented. Patient reports passage of mucus plug. heart rate auscultated at 138 bpm, within normal limits. Patient reports normal movement. Plan - Proceed with scheduled repeat on 11-18-2024 - Perform tubal ligation during as previously discussed and consented - Patient to check into hospital by 10:00 AM on the day of surgery - NPO after midnight before surgery - Monitor for increased bleeding, decreased movement, or onset of contractions; present to hospital if these occur 1. Progress Reviewed gestational age, growth, and heart rate. Planned frequent visits (every 2 weeks until 36 weeks, then weekly). 2. Instructed patient to monitor movements and report decreases immediately. 3. Testing Counseled on routine third-trimester labs per guidelines. Discussed potential need for ultrasound or monitoring based on risk factors. 4. Preeclampsia Precaution Educated on preeclampsia signs: severe headache, vision changes, right upper quadrant pain, sudden swelling. Advised urgent reporting of symptoms and discussed blood pressure monitoring if high risk. 5. Labor Precautions Reviewed labor signs: regular contractions, pelvic pressure, back pain, bleeding, or fluid leakage. Instructed to seek immediate care for these symptoms. 6. Lifestyle and Delivery Preparation Reinforced vitamins, nutrition, and safe activity. Discussed plan, pain management, and . Advised on labor preparation (e.g., hospital bag) and expectations. 7. Psychosocial Support Assessed emotional well-being and offered resources for mental health or parenting support.
== END 2024-11-13 15:48 | disposition home or self-care (01) ==
LOC: HODSOBC 14:48
PROVIDERS: Supervising Provider Obstetrics & Gynecology; Visit Provider Obstetrics & Gynecology
DX: O09.293 Supervision of pregnancy with other poor reproductive or obstetric history, third trimester (principal); O34.219 Maternal care for unspecified type scar from previous cesarean delivery; O09.893 Supervision of other high risk pregnancies, third trimester; O36.63X0 Maternal care for excessive fetal growth, third trimester, not applicable or unspecified; O26.843 Uterine size-date discrepancy, third trimester; O99.213 Obesity complicating pregnancy, third trimester; E66.811 Obesity, class 1; Z3A.38 38 weeks gestation of pregnancy
CPT/HCPCS: 99213; G0463

== ENCOUNTER 2024-11-18 09:58 | Inpatient (IN) | payer MEDICAID, SELFPAY ==
[2024-11-18] VITALS (16 sets, daily range): BP systolic 95–133; BP diastolic 50–71; PULSE 60–82; RESP 15–20; TEMP 36.6–36.7; O2SAT 97–100; BMI 35.1
--- NOTE | 2024-11-18 10:20 | PD.LDHP ---
Documentation for date of: 11/18/24 OB Labor/Induct. HPI History of Present Illness Chief complaint: Schedule repeat : 2 Para: 1 Term pregnancies: 1 pregnancies: 0 Living children: 1 History of Abortions: Spontaneous and Elective: 0 History of sections: Yes History of : No Date of last menstrual period: 01/18/24 PANCHO: 11/25/24 Gestational Age (weeks): 39 Gestational Age (days): 0 Gestational age based on last menstrual period: 43 History of present illness: 24-year-old 2 para 1-0-0-1 at 39 weeks and 0 days with estimated due date of 11/26/2023 which is not consistent with her last menstrual period but consistent with 19 weeks and 1 day ultrasound on 07/02/2024 presents for her scheduled repeat low-transverse . Patient denies any contractions or leakage of fluid or vaginal bleeding and reports good movements no other complaints on presentation today. History of Present Dating criteria: based on 2nd trimester US only Adequate Care: Yes Ultrasounds: normal mid trimester US Labs Maternal Blood Type: O Pos Labs: Positive: Rubella Titre, Negative: RPR, Hepatitis B, HIV, Chlamydia, Gonorrhea and Group Beta Strep and Unknown: Herpes Type 1, Herpes Type 2 and Covid-19 Review of Systems Review of Systems Systems Reviewed: All systems reviewed, normal except as documented Past Medical History Surgical History SURGICAL: Positive Section Meds Home Medications and Allergies Home Medications ?Medication ?Instructions ?Recorded ?Confirmed ?Type vits no.126-ferrous fum 1 tab PO DAILY 09/24/24 11/13/24 History 28 mg iron-folic acid 800 mcg tablet (Classic ) Allergies Allergy/AdvReac Type Severity Reaction Status Date / Time No Known Allergies Allergy Verified 11/13/24 15:24 OB Exam Constitutional Constitutional: no acute distress Routine HEENT Exam Head: Present normocephalic and atraumatic Eye: Present EOMI and PERRL ENT: Present mucous membranes moist Routine Neck Exam Neck: Present supple and trachea midline Routine Cardiovascular Exam Cardiovascular: Present RRR Routine Abdominal Exam Abdominal: Present soft and normoactive bowel sounds Routine Extremities Exam Extremities: Present full ROM Routine Skin Exam Skin: Present intact, dry and warm Routine Neurological Exam Neurological: Present alert, oriented X3 and CN II-XII intact Routine Psychiatric Exam Psychiatric: Present normal affect and normal thought process OB Assessment & Plan Assessment and Plan (1) Previous section: Status: Acute Assessment and plan: admit to inpatient status for repeat low transverse IV access, CBC, type and screen, LR at 125, RPR, COVID-19 test GBS negative Ancef 2 g prior to surgery start Hoff catheter to drainage SCDs for DVT prophylaxis Anesthesia to preop for spinal anesthesia Scheduled for surgery. (2) Encounter for supervision of high risk in third trimester, antepartum: Status: Acute
[2024-11-18] MEDS: RINGERS LACTATED 1000 ML 1,000 ML 100 ML IV (11:20)
[2024-11-18 11:22] LABS: Basophils % (Auto) 0 % (0-2.5); Eosinophils % (Auto) 0 % (0-10); Hemoglobin 12.3 g/dL (12.0-16.0); Immature Granulocytes % (Auto) 0 % (0-0); Immature Granulocytes Auto 0.03 Thou/mm3 (0.00-0.00); Lymphocytes # (Auto) 1.6 Thou/mm3 (1.0-4.8); Lymphocytes % (Auto) 18 % (10-50); Mean Corpuscular HGB Conc 35.1 g/dl (31.0-37.0); Mean Corpuscular Hemoglobin 29.5 pg (25.0-35.0); Mean Corpuscular Volume 84 fL (80-100); Monocytes # (Auto) 0.5 Thou/mm3 (0.0-0.8); Monocytes % (Auto) 5 % (0-12); Neutrophils # (Auto) 6.9 Thou/mm3 (1.8-7.7); Neutrophils % (Auto) 77 % (37-80); Nucleated Red Blood Cell % 0 /100 WBC (0); Platelet Count 183 Thou/mm3 (140-440); RDW Standard Deviation 42.4 fL (36.4-46.3); Red Blood Count 4.17 Miln/mm3 (4.00-5.20); White Blood Count 9.1 Thou/mm3 (3.6-11.0)
[2024-11-18 11:50] LABS: Alanine Aminotransferase 9 U/L (10-49); Albumin, Serum 3.7 gm/dL (3.5-5.0); Albumin/Globulin Ratio 1.8 (1.2-2.2); Alkaline Phosphatase 141 U/L (46-116); Anion Gap 11 (7-16); Aspartate Amino Transferase 15 U/L (0-34); BUN/Creatinine Ratio 13 Ratio (12-20); Bilirubin,Total 0.5 mg/dL (0.3-1.2); Blood Urea Nitrogen < 5 mg/dL (9-23); Calcium (Corrected) 9.2 mg/dL (8.5-10.1); Carbon Dioxide 21.6 mMol/L (20.0-31.0); Chloride 107 mMol/L (98-107); Creatinine (Component) 0.4 mg/dL (0.6-1.3); Estimated Creatinine Clearance 252.4 mL/min (>60); Globulin 2.1 gm/dL (2.3-3.5); Glucose 78 mg/dL (74-106); Osmolality,Calculated 275 (275-295); Potassium 3.6 mMol/L (3.4-5.1); Sodium 140 mMol/L (136-145); Total Protein 5.8 gm/dL (5.7-8.2); eGFR > 60 See Note
[2024-11-18 11:51] LABS: Partial Thromboplastin Time 28.3 Seconds (22.0-36.0); Prothrombin Time 10.7 Seconds (9.0-12.2)
[2024-11-18 11:57] LABS: Syphilis Nonreactive (Nonreactive)
[2024-11-18] MEDS: FAMOTIDINE INJ 10 MG/ML VIAL 2 ML 20 MG IV (12:40)
[2024-11-18] MEDS: ceFAZolin/D5W 2 GM IV 2 GM/100 ML BAG IV (12:40)
[2024-11-18] MEDS: METOCLOPRAMIDE INJ 5 MG/ML VIAL 2 ML 10 MG IVP (12:40)
[2024-11-18] MEDS: OXYTOCIN in NS 20 units 20 UNIT/1,000 ML BAG 125 UNIT IV ×2 (14:32→21:29)
[2024-11-18] MEDS: KETOROLAC INJ 30 MG/ML VIAL IVP ×2 (14:54→21:24)
--- NOTE | 2024-11-18 17:22 | ESOP_ITS ---
Operative Note - [facility] Procedure Date of procedure: 11/18/24 Procedure Performed: Repeat low-transverse section and bilateral salpingectomy Indication: 24-year-old 2 para 1 at 39 weeks Previous section Desired surgical sterilization Anesthesia type: Spinal Procedure description: Informed consent was obtained and the patient was taken to the operating room. Identity was confirmed by double identifiers and she was placed on the operating table. Spinal anesthesia was administered and she was positioned in the supine position. The abdomen and perineum were prepped in the usual sterile fashion and a Hoff catheter was placed to continuous drainage. Sterile drapes were applied. The incision site was tested for adequacy of anesthesia. A Pfannenstiel skin incision was made with a scalpel and carried to the subcutaneous fat up to the rectus fascia. The rectus fascia was incised on either side of the midline and the incisions were extended bilaterally. The fascia was gently dissected off the ventral surface of the rectus muscle both superiorly and inferiorly. The rectus bellies were gently in the midline and the peritoneum was identified and entered bluntly using the surgeon's finger. The peritoneal opening was now stretched to create an adequate opening for access to the uterus. Nikko O-ring retractor was placed for adequate visualization. The anterior surface of the uterus was palpated. The bladder reflection was identified and a Brian Manning low transverse uterine incision was made in the lower uterine segment taking care to avoid the bladder. Uterine entry was accomplished bluntly and the opening was stretched to create adequate room. The amniotic membranes were now ruptured and clear amniotic fl uid was released. The fetus was noted to be in the vertex position. The head was gently elevated out of the maternal pelvis and single loop of nuchal cord was found around the neck. The cord was released and the rest of the shoulders and body were delivered by gentle fundal pressure. Umbilical cord was doubly clamped, divided and the was handed over to the waiting team. Cord gas samples were obtained. The placenta was delivered by gentle traction on the umbilical cord. The interior of the uterus was now thoroughly cleaned of all blood and debris and membranes. The hysterotomy angles were grasped by a pair of Allis clamps and the hysterotomy was closed using 1 Monocryl suture in 2 layers. The first layer was used to approximate the muscle in a running locked fashion, the second layer was used to approximate the thickness of the myometrium and uterine serosa in a imbricated manner. Once the repair was completed the hysterotomy was inspected and noted to be adequately hemostatic. Attention was now turned to the left fallopian tube. The tube was grasped using Kamran's clamp and elevated to expose the mesosalpinx. Salpingectomy was performed using the LigaSure vessel sealing device and the entire tube was handed over for pathological examination. The same procedure was repeated on the contralateral side. The salpingectomy sites were inspected and noted to be adequately hemostatic. The hysterotomy was once again inspected and hemostasis was noted to be satisfactory. The Nikko retractor was now removed. The peritoneal edges were re approximated. The rectus muscles were re approximated. The rectus fascia was now repaired using 0 Vicryl suture in a running fashion. The subcutaneous layer was now copiously irrigated using warm normal saline. All bleeding points were cauterized using the Bovie. The subcutaneous fat was closed using 3-0 Vicryl. The skin was closed using 4-0 Monocryl in a subcuticular fashion. The skin was cleaned and a sterile dressing was applied. The patient was now undraped, the abdomen and back were thoroughly cleaned and she was not transferred to the recovery room in a stable and awake condition. The patient tolerated the entire procedure well. No complications were encountered. All instrument, sponge and lap counts were correct x2. Estimated blood loss (ml): 700 Complications: none Surgical staff Operation Date: 11/18/24 12:45 Case Staff LIFE ENRICHMENT ASSISTANT: Ramirez Rodgers Diagnosis Discharge Diagnosis (1) Previous section: Status: Acute (2) Encounter for supervision of high risk in third trimester, antepartum: Status: Acute (3) Encounter for sterilization: Status: Acute Problem List Completed Was Problem List Reviewed/Reconciled?: Yes
--- NOTE | 2024-11-18 17:24 | OBDSUM_ITS ---
Data (Grace) Data Hx Section: Yes : 2 Term: 1 : 0 Livin Abortions: Spontaneous & Theraputic: 0 Delivery Data (Grace) Labor Data Induction/Augmentation Agent: None ROM date: 11/18/24 ROM time: 13:13 Amniotic membrane rupture type: Artificial Amniotic fluid description: Clear Delivery Data delivery date: 11/18/24 delivery time: 13:14 Placenta delivery date: 11/18/24 Placenta delivery time: 13:15 Delivered by: Faith Delivery nurse: Geraldine Fitzpatrick nurse: Jacob Mcgowan Thread Cutter at delivery: No Support person(s) at delivery: Yesenia Anguiano Delivery Method Delivery method: Low Transverse Presentation: Vertex Anesthesia Type Anesthesia Type: Spinal Anesthesia type: Spinal Placenta Placenta delivery description: Manual Removal Cord blood sent to lab: Yes cord blood collection: Cord Blood Type Episiotomy Episiotomy description: None Umbilical Cord cord description: 3 Vessels Data (Grace) Data [place]'s gender: Male Identification band number: [id number] weight (gms): 4390 g Weight (pounds): 9 lbs and 10.9 ozs [place] length: 55.88 cm 1 minute: 8 5 minutes: 9
[2024-11-19] VITALS (7 sets, daily range): BP systolic 112–121; BP diastolic 67–75; PULSE 72–83; RESP 16–18; TEMP 36.6–37.1; O2SAT 96–98
[2024-11-19] MEDS: KETOROLAC INJ 30 MG/ML VIAL IVP (03:58)
[2024-11-19 05:30] LABS: Basophils % (Auto) 0 % (0-2.5); Eosinophils % (Auto) 0 % (0-10); Hematocrit 28.2 % (36.0-46.0); Immature Granulocytes % (Auto) 0 % (0-0); Immature Granulocytes Auto 0.04 Thou/mm3 (0.00-0.00); Lymphocytes # (Auto) 1.2 Thou/mm3 (1.0-4.8); Lymphocytes % (Auto) 14 % (10-50); Mean Corpuscular HGB Conc 35.5 g/dl (31.0-37.0); Mean Corpuscular Hemoglobin 29.3 pg (25.0-35.0); Mean Corpuscular Volume 83 fL (80-100); Monocytes # (Auto) 0.7 Thou/mm3 (0.0-0.8); Monocytes % (Auto) 8 % (0-12); Neutrophils # (Auto) 7.1 Thou/mm3 (1.8-7.7); Neutrophils % (Auto) 78 % (37-80); Nucleated Red Blood Cell % 0 /100 WBC (0); Platelet Count 149 Thou/mm3 (140-440); RDW Standard Deviation 41.1 fL (36.4-46.3); Red Blood Count 3.41 Miln/mm3 (4.00-5.20); White Blood Count 9.1 Thou/mm3 (3.6-11.0)
[2024-11-19] MEDS: IBUPROFEN TAB 400 MG TABLET 800 MG PO ×2 (09:36→17:50)
[2024-11-19] MEDS: DOCUSATE SOD 100 MG CAPSULE PO (09:37)
[2024-11-19] MEDS: SIMETHICONE 80 MG CHEW PO (18:01)
[2024-11-19] MEDS: Milk Of Magnesia Susp 30 ML UDC PO (18:01)
[2024-11-20 04:00] VITALS: BP 115/65; PULSE 69; RESP 18; TEMP 36.7; O2SAT 95
[2024-11-20 09:05] VITALS: BP 111/69; PULSE 77; RESP 15; TEMP 36.7; O2SAT 99
[2024-11-20] MEDS: DOCUSATE SOD 100 MG CAPSULE PO (09:11)
[2024-11-20] MEDS: IBUPROFEN TAB 400 MG TABLET 800 MG PO (09:11)
--- NOTE | 2024-11-20 12:03 | PD.LDPPPRG ---
Subjective Subjective Interval history: Delivery type: Patient doing well this morning. No acute complaints. Ambulating, tolerating p.o. and voiding without difficulty. HTN/Pre-Eclampsia screen: No chest pain, shortness of breath, headache, visual changes, epigastric or right upper quadrant pain. Breast-feeding, lochia diminishing. Bowel: Flatus+/ BM+ Exam Vital Signs Temp Pulse Resp BP Pulse Ox O2 Del Method 98.1 F 77 15 111/69 99 Room Air 11/20/24 09:05 11/20/24 09:05 11/20/24 09:05 11/20/24 09:05 11/20/24 09:05 11/20/24 09:05 Constitutional Constitutional: no acute distress Routine HEENT Exam Head: Present normocephalic and atraumatic Eye: Present EOMI and PERRL ENT: Present mucous membranes moist Routine Neck Exam Neck: Present supple and trachea midline Routine Respiratory Exam Respiratory: Present chest non-tender, lungs clear, normal breath sounds and no resp distress Routine Cardiovascular Exam Cardiovascular: Present RRR Routine Abdominal Exam Abdominal: Present soft and normoactive bowel sounds Routine Extremities Exam Extremities: Present full ROM Routine Skin Exam Skin: Present intact, dry and warm Routine Neurological Exam Neurological: Present alert, oriented X3 and CN II-XII intact Routine Psychiatric Exam Psychiatric: Present normal affect and normal thought process Objective Labs 11/19/24 04:50 11/18/24 10:40 Assessment & Plan Problem List (1) Previous section: Status: Acute (2) Encounter for supervision of high risk in third trimester, antepartum: Status: Acute (3) Encounter for sterilization: Status: Acute (4) delivery delivered: Status: Acute Assessment and plan: PPD/POD#2 1. Continue routine care 2. Transition to PO meds. 3. Encourage to ambulate/ breast-feed 4. Anticipate discharge home today. Time Spent With Patient Time: Total time spent is greater than 50% in coordination of care (as documented) at patient's floor/unit and/or counseling patient:
--- NOTE | 2024-11-20 12:05 | ESDS_ITS ---
DS: Providers Provider Date of admission: 11/18/24 09:58 Primary care physician: Gonzalo Guerra MD Admitting Provider: Dagoberto Cuevas MD Attending Provider on Admission: Dagoberto Cuevas MD Consults: 11/18/24 14:23 Referral Routine Comment: Attending Provider on DC: Dagoberto Cuevas MD Discharging Provider: Dagoberto Cuevas MD DS: Diagnosis Discharge Diagnosis (1) delivery delivered: Status: Acute (2) Encounter for sterilization: Status: Acute (3) Previous section: Status: Acute Problem List Completed Was Problem List Reviewed/Reconciled?: Yes Summary/Hosp Course Brief History: 24-year-old 2 para 1-0-0-1 at 39 weeks and 0 days with estimated due date of 11/26/2023 which is not consistent with her last menstrual period but consistent with 19 weeks and 1 day ultrasound on 07/02/2024 presents for her scheduled repeat low-transverse . Patient denies any contractions or leakage of fluid or vaginal bleeding and reports good movements no other complaints on presentation today. Peripartum Data Delivery Method: Low Transverse Episiotomy Description: None Procedures: Procedures Operation Date: 11/18/24 12:45 Actual Procedure Side Surgeon p w/tubal OB Bilateral Dagoberto Cuevas MD Time Spent with Patient Time attestation: Total time spent providing and/or coordinating discharge services: Exam Vital Signs Temp Pulse Resp BP Pulse Ox O2 Del Method 98.1 F 77 15 111/69 99 Room Air 11/20/24 09:05 11/20/24 09:05 11/20/24 09:05 11/20/24 09:05 11/20/24 09:05 11/20/24 09:05 Discharge Plan Plan Patient Disposition: HOME (Self Care) Prescriptions/Referrals Prescriptions/Med Rec: New docusate sodium 100 mg Capsule 100 mg PO QDAY 30 Days Qty: 30 0RF hydrocodone-acetaminophen 5-325 mg tablet 1 tab PO Q6H MDD 4 PRN (Reason: pain) 7 Days Qty: 28 0RF ibuprofen 600 mg tablet 600 mg PO Q6H MDD 4 PRN (Reason: fever or pain) 10 Days Qty: 40 0RF Continued Classic 28 mg iron- 800 mcg tablet 1 tab PO DAILY Referrals: Gonzalo Guerra MD [Primary Care Provider] - Dagoberto Cuevas MD [Physician] - Patient/Caregiver Discharge Instructions Education Materials: Understanding Blues, Breast Care After , C Section Dc Print Language: Wallisian Stand Alone Forms: [facility]asta Award Info., Patient Portal Info Letter, DC from Surgery Discharge Order Discharge Orders: Discharge (Routine); Ordered 11/20/24 Ordered By: Dagoberto Cuevas Planned Discharge Date 11/20/24
== END 2024-11-20 15:15 | disposition home or self-care (01) | DRG 539 ==
LOC: S4SX 11:30 → S4NX 12:45
PROVIDERS: Admitting Provider Obstetrics & Gynecology; PCP Family Medicine; Visit Provider Obstetrics & Gynecology
PROC: 0UL70ZZ Occlusion of Bilateral Fallopian Tubes, Open Approach (ICD-10-PCS; CPT 59514; principal; 2024-11-18 12:30)
DX: O34.211 Maternal care for low transverse scar from previous cesarean delivery (principal); Z37.0 Single live birth; Z3A.39 39 weeks gestation of pregnancy; Z30.2 Encounter for sterilization; O69.81X0 Labor and delivery complicated by cord around neck, without compression, not applicable or unspecified
CPT/HCPCS: 36415; 59409; 80053; 85025; 85610; 85730; 86780; 86850; 86900; 86901; 94762; A4649; J0689; J1885; J2274; J2590; J2765; J3010; J3490; J7120; A9270; J2270

== ENCOUNTER 2024-11-28 13:01 | Outpatient (AMB) | payer MEDICAID, SELFPAY ==
[2024-11-28 13:08] VITALS: BP 127/78; PULSE 78; RESP 18; TEMP 36.2; O2SAT 98
--- NOTE | 2024-11-28 13:08 | AMBOBPPN_ITS ---
Vital Signs 11/28/24 13:08 Weight 84.935 kg Weight Measurement Method Standing Scale BP 127/78 Blood Pressure Source Automatic Cuff Blood Pressure Location Left Upper Arm Position Sitting Respiration 18 Pulse 78 Pulse Source Monitor Temp 97.2 F Temp Source Oral Pulse Oximetry (%) 98 Oxygen Delivery Method Room Air Allergies/Home Meds Allergies & Medications Allergies No Known Allergies Allergy (Verified 11/28/24 13:10) Medication Reconciliation vits no.126-ferrous fum 28 mg iron-folic acid 800 mcg tablet (Classic ) 1 tab PO DAILY 09/24/24 [History Confirmed 11/28/24] docusate sodium 100 mg capsule 100 mg PO QDAY 30 days #30 caps 11/20/24 [Rx Conf irmed 11/28/24] Intake Visit Data Collection New Patient or Established: Established Patient (seen at [facility] within 3 years) Reason for Visit:: Seen by Clinical Staff ONLY (RN/MA): No Cold Roll Catcher Required: Yes Cold Roll Catcher's name/title: NAUN GONZALEZ MA Do You Feel Safe at Home: Yes Authorities Contacted: N/A PCP or OBGYN visit in last 3 months: Yes Hx Now: No Are you currently on any form of Control: No Pain Present Currently: No Pain Scale Used: Lind-Dickens/Numerical Pain scale:: 0 Smoking Status Smoking Status: Never smoker 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: Past Medical History Past Medical History: No Hx Neurological Disorders, No Hx Cardiac Disorders, No Hx Cancer, No Hx Blood Disorders, No Hx Gastrointestinal Disorders, No Hx Renal Disease, No Hx Diabetes Mellitus Type 1 and No Hx Diabetes Mellitus Type 2 Questionnaires Covid-19 Vaccine Questionnaire Has patient been vacinated for Covid-19 Have you been vacinated for Covid-19: Yes Social History Living Situation History Marital Status: Single Lives With: Spouse Housing: Apartment Tobacco History Smoking Status: Never smoker Second Hand Smoke Exposure: No Alcohol History Alcohol Intake: Never Domestic Abuse History Do You Feel Safe at Home: Yes EPDS - PP Depression Screening [place] Pospartum Depression Screen I have been able to laugh and see the funny side of things: (0) As much as I always could I have looked forward with enjoyment to things: (0) As much as I ever did I have blamed myself unnecessarily when things went wrong: (0) No, never I have been anxious or worried for no good reason: (0) No, not at all I have felt scared or panicky for no very good reason: (0) No, not at all Things have been getting on top of me: (0) No, I have been coping as well as ever I have been so unhappy that I have had difficulty sleeping: (0) No, not at all I have felt sad or miserable: (0) No, not at all I have been so unhappy that I have been crying: (0) No, never The thought of harming myself has occurred to me: (0) Never Total Score: EPDS Score: Referral is indicated for score of 9 or more, suicidal, or if provider believes patient is depressed regardless of score.: 0 EPDS completed yes Care OB Visit Log OB Flowsheet Initial Weight: Not Recorded Date -?-?-?-?-?-?-?-?-?-?-?-?- EGA Weight BP Alb Glu CTX Pres Fundal ht FHR Mov Dilation Station Effacement Hx Notes Visit Note 09/24/24 -?-?-?-?-?-?-?-?-?-?-?-?- 31w 1d 93.894 kg 114/66 absent unknown 31 24-year-old 2 para 1, previous x 1 for 4 first OB check to [facility]. Patient is a transfer of care from [facility] with her records. She reports good movement. Denies any complaints of labor. No leaking. She had Tdap at her last visit. She had a abnormal 1 hour that was 142. 3-hour Glucola was normal. Her A1c was 5.1. Patient is been taking her vitamins and iron. Reports good movement. Patient has follow-up maternal- ultrasound October 29. 10/13/24 -?-?-?-?-?-?-?-?-?-?-?-?- 33w 6d 94.12 kg 119/69 Patient is a 24-year-old at 28 weeks gestation (PANCHO 11/25/2024) presenting for her first visit after transferring care from [facility]. She has a history of one prior section. Reports active movement and denies contractions. Previous complaint of spinal pressure has resolved. An abnormal 1-hour glucose test was followed by a normal 3-hour GTT; A1c is 5.1. No current complications or concerns noted. Review of systems negative except for movement. Plan: Schedule maternal- medicine ultraso und on 10/21/2024 Schedule specialist ultrasound on 025 Plan for repeat after speciali st ultrasound evaluation Schedule follow-up visit after 10/29 to [facility] ultrasound findings Provide and review sterilization consent form; obtain signature Brake Assembler on the irreversible nature of pe rmanent sterilization Review visitor policy: 1 person allowed during surgery, 2 visitors allowed post-op 10/30/24 -?--?-?-?-?-?-?-?-?-?-?-?- 36w 2d 94.914 kg 125/68 at 36 weeks and 2 days gestation with a history of prior section presents for routine care. Patient is compliant with all care. Recent [facility] ultrasound on 10/29/2024 showed a cephalic fetus with posterior placenta, CHRISTINA of 12.9, FHR 167 bpm, and an estimated weight of 3,362 grams. Noted class I obesity (BMI 31.5), large for gestational age fetus, and size-date discrepancy with revised EDC to 11/25/2024. No current complaints. Reports good movement and denies contra ctions, LOF, or VB. Plan: Problem List: 36w2d, previous section, class I obesity, large for gestational age fetus, size-date discrepancy. Proceed with scheduling of repeat maribel an delivery. Group B Streptococcus screening performed today. Patient to return for follow-up in one week. Reviewed labor and preeclampsia warning signs, emphasized movement monitoring, and discussed nutritional counseling for continued healthy weight maintenance through term. 11/06/24 -?-?-?-?-?-?-?-?-?-?-?-?- 37w 2d 94.347 kg 117/78 38yo @36w2d, prior C/S, class 1 obesity, LGA fetus (3362g, 92nd%), size-date discrepancy, pain likely size, FHT 155 bpm. Plan: C/S 11/18, f/u next week, GBS swab, C/S consent, provide US results. 11/13/24 -?-?-?-?-?-?-?-?-?-?-?-?- 38w 2d 95.028 kg 122/78 @ 38w2d, h/o , class 1 obesity, LGA fetus (92nd %ile at 36w), presents for pre-op eval. No CTX/LOF/VB, reports good FM. Passed mucus plug, no excessive bleeding. Transferred care from another facility. FHT 138 bpm. Plan: Proceed with scheduled repeat C-se ction and tubal ligation on 11/18/2024. Patient to check in by 10:00 AM, NPO after midnight. Counselled to monitor for CTX, decreased FM, or bleeding. Await GBS result from outside records. Routine precautions reviewed. No further office visits planned. PANCHO Calculator Estimated Delivery Date Method Current WG Current Estimate 11/25/24 Ultrasound #2 40w 5d Other Estimates 10/24/24 LMP (Uncertain) 45w 2d 11/25/24 Ultrasound #1 40w 5d HPI Interval History: Ban Jorge presents for a routine visit 10 days after undergoing a scheduled section on November 18, 2024. The patient is recovering well from the procedure. Her incision site has been examined and is noted to be healing appropriately, with the wound already closed. The patient has been advised to continue wearing her postoperative support garment until one month post-surgery. The patient's overall recovery appears to be progressing as expected. She has been instructed to gradually increase her activities but to avoid overexertion at this stage of her recovery. The patient is her , though specific details about the 's health or feeding patterns were not discussed in depth during this visit. Gestational age at delivery (weeks): 39 Delivering provider: Faith Delivery complications: No Is patient infant: Yes Is patient sexually active: No Exam Narrative Physical exam: Abdomen: Incision site from section examined. Incision appears closed and healing well Office Procedures OB Clinic LOC & Office Proc's Nursing/Assessment Patient Status: Established Patient OB Clinic Nursing Assessment: Medication Reconciliation, Update PMH in EMR and Vital Signs OB Clinic Coordination of Care: Education Complex Pt/Fam, Consent,records obtained, informed consent, Lab and Imaging orders, Ref for ancillary service and Staff clarify orders Special Needs: Language special needs Established Patient Charge Established Patient Point Assignment: 110 Established Patient Point Charge: EP Level 3 (80-115) Assessment & Plan Diagnosis / Problem List (1) delivery delivered: Status: Acute (2) Encounter for sterilization: Status: Acute (3) Previous section: Status: Acute Plan Ban Jorge presents for a routine 10-day visit following a scheduled section on 11/18/2024. Postoperative section Assessment: Patient is 10 days post- section. The incision site was examined and found to be healing well, with closure already achieved. No signs of infection or complications were noted. Plan: - Continue wearing abdominal support until one month - Gradually increase activities, avoiding strenuous exertion - Follow-up appointment scheduled for one month from now
== END 2024-11-28 13:22 | disposition home or self-care (01) ==
LOC: HODSOBC 13:01
PROVIDERS: PCP Family Medicine; Referring Provider Family Medicine; Supervising Provider Obstetrics & Gynecology; Visit Provider Obstetrics & Gynecology
DX: Z39.2 Encounter for routine postpartum follow-up (principal); Z39.1 Encounter for care and examination of lactating mother
CPT/HCPCS: 99213; G0463

== ENCOUNTER 2025-01-05 11:27 | Outpatient (AMB) | payer MEDICAID, SELFPAY ==
[2025-01-05 11:38] VITALS: BP 111/69; PULSE 68; RESP 17; TEMP 36.4; O2SAT 98; BMI 36.8
--- NOTE | 2025-01-05 11:38 | AMB.OBPP ---
Vital Signs 01/05/25 11:38 Height 1.52 m Height Method Measured Weight 85.445 kg Weight Measurement Method Standing Scale BMI 36.8 BP 111/69 Blood Pressure Source Automatic Cuff Blood Pressure Location Right Upper Arm Position Sitting Respiration 17 Pulse 68 Pulse Source Monitor Temp 97.5 F Temp Source Temporal Artery Scan Pulse Oximetry (%) 98 Oxygen Delivery Method Room Air Allergies/Home Meds Allergies & Medications Allergies No Known Allergies Allergy (Verified 01/05/25 11:39) Intake Visit Data Collection New Patient or Established: Established Patient (seen at [facility] within 3 years) Reason for Visit:: Consent obtained for Telemed Visit: No Seen by Clinical Staff ONLY (RN/MA): No Health/Safety Job Titles Required: Yes Health/Safety Job Titles's name/title: NAUN CLARK Do You Feel Safe at Home: Yes Authorities Contacted: N/A PCP or OBGYN visit in last 3 months: Yes Date of Last PCP or OBGYN visit: 11/28/24 Hx Now: No Are you currently on any form of Control: No Pain Present Currently: No Pain Scale Used: Lind-Dickens/Numerical Pain scale:: 0 Smoking Status 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 Medical History Past Medical History: No Hx Neurological Disorders, No Hx Cardiac Disorders, No Hx Cancer, No Hx Blood Disorders, No Hx Gastrointestinal Disorders, No Hx Renal Disease, No Hx Diabetes Mellitus Type 1 and No Hx Diabetes Mellitus Type 2 Questionnaires Covid-19 Vaccine Questionnaire Has patient been vacinated for Covid-19 Have you been vacinated for Covid-19: Yes Social History Living Situation History Lives With: Spouse Housing: Apartment Tobacco History Smoking Status: Never smoker Second Hand Smoke Exposure: No Alcohol History Alcohol Intake: Never Domestic Abuse History Do You Feel Safe at Home: Yes EPDS - PP Depression Screening [place] Pospartum Depression Screen I have been able to laugh and see the funny side of things: (0) As much as I always could I have looked forward with enjoyment to things: (0) As much as I ever did I have blamed myself unnecessarily when things went wrong: (0) No, never I have been anxious or worried for no good reason: (0) No, not at all I have felt scared or panicky for no very good reason: (0) No, not at all Things have been getting on top of me: (0) No, I have been coping as well as ever I have been so unhappy that I have had difficulty sleeping: (0) No, not at all I have felt sad or miserable: (0) No, not at all I have been so unhappy that I have been crying: (0) No, never The thought of harming myself has occurred to me: (0) Never HPI Interval History: Patient presents for a 6-week follow-up visit following a performed on November 18. She reports no significant issues since her surgery. Patient mentions experiencing some pain, which is attributed to her gradually increasing activity level. She does not report any other specific complaints or concerns at this time. She is a G1 T1 L1 who delivered via on November 18, 2024. Her surgical history includes a section on November 18. Patient reports positive for musculoskeletal pain, presumably related to recovery. Exam Narrative Physical exam: - Abdomen: incision site examined. Incision is fully healed. General General Appearance: alert, in no apparent distress and healthy appearing Head Head exam: atraumatic Neck Neck exam: Present normal inspection and trachea midline Chest Chest inspection: Present normal inspection and symmetric chest wall rise External exam: Present normal external exam; Absent tenderness Neuro Neurological exam: Present oriented X3 Psych Psychiatric exam: Present normal affect and normal mood Office Procedures OB Clinic LOC & Office Proc's Nursing/Assessment Patient Status: Established Patient OB Clinic Nursing Assessment: Medication Reconciliation, Update PMH in EMR and Vital Signs OB Clinic Coordination of Care: Complex Care and Chronic Disease 1-5, Complex Care/Chronic Disease 5 or more, Consent,records obtained, informed consent and Education Simp Pt/Fam Established Patient Charge Established Patient Point Assignment: 110 Post Follow-up Visit Post Follow up Visit: Yes Assessment & Plan Diagnosis / Problem List (1) delivery delivered: Status: Acute Plan status: - Patient is 6 weeks following delivery on November 18. - No issues or concerns reported. - Physical examination reveals a well-healed surgical incision. Plan: - No restrictions; patient advised to resume pre- activities. - Return to clinic for routine pap smear as needed. - Follow up if any issues arise. Postoperative pain: - Patient reports some residual pain, expected to improve with increased activity. Plan: - Encourage gradual increase in activity level to alleviate pain.
== END 2025-01-05 11:49 | disposition home or self-care (01) ==
LOC: HODSOBC 11:27
PROVIDERS: PCP Family Medicine; Referring Provider Family Medicine; Supervising Provider Obstetrics & Gynecology; Visit Provider Obstetrics & Gynecology
DX: Z39.2 Encounter for routine postpartum follow-up (principal)
CPT/HCPCS: 59430; 99213; G0463